=== PATIENT | male | born 1980 | race Caucasian/White ===

== ENCOUNTER 2016-11-20 11:34 | Emergency (ER) | payer OTHER ==
[~2016-11-20] VITALS: Ht 180.3 cm; Wt 90.7 kg
[~2016-11-20 11:34] MED LIST: BACTRIM DS 8001 TA1 PO; CIPRO500 MG PO; CIPROFLOXACIN500 MG PO; KEFLEX500 MG PO; MEDROL DOSEPAK4 MG PO; MULTI VITAMINS1 TAB PO; NATURE'S BLEND F1 MG PO; NKHM; NORCO 10-325 T1 EACH PO; OMNICEF300 MG PO; VIBRAMYCIN100 MG PO; VICODIN ES 7501 TAB PO; VITAMIN B-11 TAB PO; VITAMIN D400 IU PO
[2016-11-20 11:40] VITALS: BP 182/117
[2016-11-20] MEDS ORDERED: AMLODIPINE BESYL5 MG PO (11:42)
[2016-11-20] MEDS ORDERED: TOBREX OPHTH S2.5 ML OPH (11:56)
== END 2016-11-20 12:00 | disposition home or self-care (01) ==
LOC: ED 11:34
DX: H10.89 Other conjunctivitis (principal); F17.200 Nicotine dependence, unspecified, uncomplicated; F12.10 Cannabis abuse, uncomplicated; Z90.89 Acquired absence of other organs; Z79.899 Other long term (current) drug therapy

== ENCOUNTER 2016-11-23 11:37 | Emergency (ER) | payer OTHER ==
[~2016-11-23] VITALS: Ht 180.3 cm; Wt 90.7 kg
[~2016-11-23 11:37] MED LIST changes: +AMLODIPINE BESYL5 MG PO; +TOBREX OPHTH S2.5 ML OPH
[2016-11-23 11:42] VITALS: BP 156/94
[2016-11-23] MEDS ORDERED: LIPITOR20 MG PO (11:46)
[2016-11-23] MEDS ORDERED: CLARITIN10 MG PO (12:23)
[2016-11-23] MEDS ORDERED: FLONASE ALLERG9.9 ML NAS (12:23)
== END 2016-11-23 12:30 | disposition home or self-care (01) ==
LOC: ED 11:37
DX: H10.9 Unspecified conjunctivitis (principal); F17.200 Nicotine dependence, unspecified, uncomplicated; F12.10 Cannabis abuse, uncomplicated; I10 Essential (primary) hypertension; Z90.89 Acquired absence of other organs; Z79.899 Other long term (current) drug therapy

== ENCOUNTER 2017-01-29 14:46 | Emergency (ER) | payer OTHER ==
[~2017-01-29] VITALS: Wt 94.8 kg
[~2017-01-29 14:46] MED LIST changes: +CLARITIN10 MG PO; +FLONASE ALLERG9.9 ML NAS; +LIPITOR20 MG PO
[2017-01-29 14:51] VITALS: BP 146/81
== END 2017-01-29 14:58 | disposition home or self-care (01) ==
LOC: ED 14:46
DX: H00.012 Hordeolum externum right lower eyelid (principal)

== ENCOUNTER 2017-10-12 05:18 | Emergency (ER) | payer SELFPAY ==
[~2017-10-12] VITALS: Ht 180.3 cm; Wt 92.5 kg
[2017-10-12 06:22] VITALS: BP 154/94
[2017-10-12] MEDS ORDERED: IBU800 MG PO (06:23)
== END 2017-10-12 06:25 | disposition home or self-care (01) ==
LOC: ED 05:18
DX: S01.112A Laceration without foreign body of left eyelid and periocular area, initial encounter (principal); S09.90XA Unspecified injury of head, initial encounter; R07.81 Pleurodynia; F17.200 Nicotine dependence, unspecified, uncomplicated; F12.10 Cannabis abuse, uncomplicated; I10 Essential (primary) hypertension; Z90.89 Acquired absence of other organs; Z79.899 Other long term (current) drug therapy; Y04.0XXA Assault by unarmed brawl or fight, initial encounter; Y93.89 Activity, other specified; Y92.89 Other specified places as the place of occurrence of the external cause; Y99.9 Unspecified external cause status

== ENCOUNTER 2018-03-08 04:53 | Emergency (ER) | payer SELFPAY ==
[~2018-03-08] VITALS: Ht 154.9 cm; Wt 85.3 kg
[~2018-03-08 04:53] MED LIST changes: +IBU800 MG PO
[2018-03-08 04:54] VITALS: BP 153/99
[2018-03-08] MEDS ORDERED: Motrin,Rufen800 MG PO (08:10)
== END 2018-03-08 08:14 | disposition home or self-care (01) ==
LOC: ED 04:53
DX: S20.212A Contusion of left front wall of thorax, initial encounter (principal); I10 Essential (primary) hypertension; F17.200 Nicotine dependence, unspecified, uncomplicated; X58.XXXA Exposure to other specified factors, initial encounter; Y93.89 Activity, other specified; Y92.89 Other specified places as the place of occurrence of the external cause; Y99.8 Other external cause status

== ENCOUNTER 2020-12-28 07:57 | Emergency (ER) | payer OTHER ==
[~2020-12-28] VITALS: Ht 180.3 cm; Wt 97.5 kg
[~2020-12-28 07:57] MED LIST changes: +Motrin,Rufen800 MG PO; +TOBRAMYCIN 5 ML5 M1 OPH
[2020-12-28 08:02] VITALS: BP 168/98
[2020-12-28] MEDS ORDERED: HYDROCODONE-AC1 EAC1 PO (09:41)
== END 2020-12-28 09:48 | disposition home or self-care (01) ==
LOC: ED 07:57
DX: S22.31XA Fracture of one rib, right side, initial encounter for closed fracture (principal); F12.90 Cannabis use, unspecified, uncomplicated; F17.200 Nicotine dependence, unspecified, uncomplicated; Z90.89 Acquired absence of other organs; W18.30XA Fall on same level, unspecified, initial encounter; Y93.89 Activity, other specified; Y92.89 Other specified places as the place of occurrence of the external cause; Y99.9 Unspecified external cause status